=== PATIENT | female | born 1945 | race Caucasian/White ===

== ENCOUNTER 2020-08-27 22:29 | Inpatient (IN) | payer OTHER ==
[~2020-08-27] VITALS: Ht 152.4 cm; Wt 88.5 kg
--- NOTE | 2020-08-27 22:58 | NUR ---
PT PLACED ON 4L VIA NC, SATURATING 80S ON ROOM AIR AND DROPPING. EMT AT BEDSIDE FOR EKG.
--- NOTE | 2020-08-27 23:13 | NUR ---
PATIENT CAME TO ER BED 18 C/O SOB. PATIENT STATES SHE TESTED POSITIVE 2 WEEKS AGO. PATIENT IS CZECH SPEAKING. AAOX4. BREATHING EVENLY AND UNLABORED ON 4L OF N/C. PATIENT IS CONNECTED TO THE MONITOR.
--- NOTE | 2020-08-27 23:33 | NUR ---
BLOOD, CULTURES, AND COVID SWAB COLLECTED AND SENT TO THE LAB.
[2020-08-27 23:34] LABS: BASOPHILS % (AUTO) 0.2 % (0.0-2.0); EOSINOPHILS % (AUTO) 1.5 % (0.0-6.0); HEMATOCRIT 34 % (33-45); HEMOGLOBIN 11.4 g/dL (11.5-14.8); LYMPHOCYTES # (AUTO) 0.8 /CMM (0.8-4.8); LYMPHOCYTES % (AUTO) 10.8 % (20.0-44.0); MEAN CORPUSCULAR HGB CONC 34 g/dl (31.0-36.0); MEAN CORPUSCULAR VOLUME 93 fL (82-100); MONOCYTES # (AUTO) 0.5 /CMM (0.1-1.30); MONOCYTES % (AUTO) 6.6 % (2.0-12.0); NEUTROPHILS # (AUTO) 6.3 /CMM (1.8-8.9); NEUTROPHILS % (AUTO) 80.9 % (43.0-81.0); PLATELET COUNT (AUTO) 336 /CMM (150-450); RED BLOOD CELL COUNT(AUTO) 3.65 MIL/uL (4.0-5.2); WHITE BLOOD COUNT (AUTO) 7.8 K/uL (4.3-11.0)
[2020-08-27 23:44] LABS: CALCIUM, SERUM 8.8 mg/dL (8.5-10.1); CARBON DIOXIDE 25 mmol/L (21-32); CHLORIDE 98 mmol/L (98-107); CREATININE 0.9 mg/dL (0.6-1.3); GLUCOSE 135 mg/dL (74-106); POTASSIUM 4.3 mmol/L (3.5-5.1); SODIUM SERUM 134 mmol/L (136-145); UREA NITROGEN, BLOOD 16 mg/dL (7-18)
[2020-08-27 23:57] LABS: ALANINE AMINOTRANSFERASE 30 U/L (12-78); ALBUMIN 2.6 g/dL (3.4-5.0); ALKALINE PHOSPHATASE 97 U/L (46-116); ASPARTATE AMINOTRANSFERASE 36 U/L (15-37); B-TYPE NATRIURETIC PEPTIDE 64 PG/ML (0-125); BILIRUBIN,TOTAL 0.3 mg/dL (0.2-1.0); TOTAL PROTEIN, SERUM 8.3 g/dL (6.4-8.2)
--- NOTE | 2020-08-28 01:41 | NUR ---
PATIENT IS SLEEPING. BREATHING EVENLY AND UNLABORED ON ROOM AIR. CONNECTED TO THE MONITOR. BED AT THE LOWEST POSITION. CALL LIGHT WITHIN REACH.
[2020-08-28 01:45] LABS: C-REACTIVE PROTEIN 29.2 mg/dL (0.0-0.9)
[2020-08-28] MEDS ORDERED: VANCOMYCIN 1 GM in IV D5W 250 ML IV ONE (02:00)
[2020-08-28] MEDS ORDERED: PIPERACILLIN /TAZOBACTAM 3.375 G in IV D5W 50 ML IV ONE (02:00)
[2020-08-28] MEDS ORDERED: VANCOMYCIN 1 GM VIAL ONE (02:07)
--- NOTE | 2020-08-28 02:24 | NUR ---
CALLED AFTER HOUR PHARMACY TO VERIFY THE ADMITTING ORDERS
[2020-08-28] MEDS ORDERED: PIPERACILLIN /TAZOBACTAM 3.375 G VIAL IV ONE (02:32)
--- NOTE | 2020-08-28 03:25 | NUR ---
patient ambulated to the restroom with a steady gait.
--- NOTE | 2020-08-28 05:04 | NUR ---
PATIENT AMBULATED TO THE RESTROOM WITH A STEADY GAIT.
--- NOTE | 2020-08-28 07:24 | NUR ---
Patient ambulated to the restroom with a steady gait.
[2020-08-28] MEDS ORDERED: MAG HYDROX/AL HYDROX/SIMETH 30 ML UDC PO PRN (09:30)
[2020-08-28] MEDS ORDERED: MORPHINE SULFATE INJ 2 MG/ML DISP.SYRIN IV PRN (09:30)
[2020-08-28] MEDS ORDERED: ZOLPIDEM TARTRATE 5 MG TABLET PO PRN (09:30)
[2020-08-28] MEDS ORDERED: ACETAMINOPHEN 325 MG TABLET PO PRN (09:30)
[2020-08-28] MEDS ORDERED: HYDROCODONE/APAP 5/325MG TABLET PO PRN (09:30)
[2020-08-28] MEDS ORDERED: ONDANSETRON HCL/PF 4 MG/2 ML VIAL IVP PRN (09:30)
[2020-08-28] MEDS ORDERED: MAGNESIUM HYDROXIDE 30 ML UDC PO PRN (09:30)
[2020-08-28] MEDS: CEFTRIAXONE 1 G in IV D5W 50 ML IV SCH (10:10)
[2020-08-28] MEDS: ENOXAPARIN SODIUM 40 MG/0.4 ML DISP.SYRIN SQ SCH (10:31)
--- NOTE | 2020-08-28 10:33 | NUR ---
PATIENT AMBULATED TO RESTROOM, DESATURATED TO 80S WITH NASAL CANNULA. APPLIED 15LPM VIA NRB WITH SPO2 OF 97%.
[2020-08-28] MEDS: AZITHROMYCIN 500 MG in IV D5W 250 ML IV SCH (10:45)
[2020-08-28] MEDS ORDERED: ALBUTEROL SULFATE INH 18 GM HFA.AER.AD IH PRN (12:00)
--- NOTE | 2020-08-28 12:23 | NUR ---
CALLED RT FOR PRN BREATHING TREATMENT.
--- NOTE | 2020-08-28 13:25 | NUR ---
PATIENT RESTING, NO DISTRESS NOTED.
[2020-08-28] MEDS: DEXAMETHASONE SOD PHOSPHATE 10 MG/ML VIAL IV SCH (14:52)
--- NOTE | 2020-08-28 15:00 | NUR ---
ROBERT MADE AWARE PATIENT IS ON 15LPM VIA NRB. WITH O2 SAT OF 96%.
--- NOTE | 2020-08-28 16:00 | NUR ---
PATIENT A/OX4, PLACED ON SIMPLE MASK AT 8LPM WITH SPO2 OF 94%. NO DISTRESS NOTED.
--- NOTE | 2020-08-28 18:24 | NUR ---
BED 113-2
--- NOTE | 2020-08-28 18:27 | NUR ---
PER ROBERT, PATIENT TO BE UPGRADED TO EYRN STATUS.
--- NOTE | 2020-08-28 19:07 | NUR ---
REPORT GIVEN TO LIBBY BARTON FOR ALVINO.
--- NOTE | 2020-08-28 21:30 | NUR ---
LEAN FACILITATOR NOTES ADMITTED PATIENT FROM ER WITH DX OF PNA COVID BY DR LEÓN. PATIENT ALERT ORIENTED X 4. ON NON REBREATHER 15L O2 SAT AT 97 %, NON LABORED BREATHING. PRODUCTIVE COUGH NOTED. PUT ON TELE MONITOR, SHOWS SINUS RHYTHYM HR 83. DENIES ANY PAIN. BODY CHECKED DONE, SKIN INTACT. WITH RIGHT AC IV G18 PATENT AND INTACT, FLUSHED NO SIGNS OF INFILTRATION. BP 131/72 R 25 P 83 T 99.1 .ISOLATION PRECAUTION IMPLEMENTED. ALL SAFETY MEASURES IMPLEMENTED PER PROTOCOL, BED LOCKED IN LOWEST POSITION. SIDE RAILS UP X 2. CALL LIGHT WITHIN REACH. KEPT CLEAN AND COMFORTABLE.
[2020-08-28] MEDS: IV NS 0.9% 1,000 ML IV PRN (21:36)
--- NOTE | 2020-08-28 22:35 | NUR ---
ERYN RN NOTE DAY CARE ATTENDANT ESTRELLA CALLED INFORMED ME THAT PT COVID PCR RESULT IS POSITIVE.
[2020-08-29] VITALS: BP 123/69
[2020-08-29 04:00] VITALS: BP 117/73
[2020-08-29 06:54] LABS: BASOPHILS % (AUTO) 0.1 % (0.0-2.0); HEMATOCRIT 32 % (33-45); HEMOGLOBIN 10.9 g/dL (11.5-14.8); LYMPHOCYTES % (AUTO) 11.8 % (20.0-44.0); MEAN CORPUSCULAR HGB CONC 34 g/dl (31.0-36.0); MEAN CORPUSCULAR VOLUME 93 fL (82-100); MONOCYTES # (AUTO) 0.3 /CMM (0.1-1.30); NEUTROPHILS # (AUTO) 6.8 /CMM (1.8-8.9); NEUTROPHILS % (AUTO) 84.1 % (43.0-81.0); PLATELET COUNT (AUTO) 385 /CMM (150-450); RED BLOOD CELL COUNT(AUTO) 3.46 MIL/uL (4.0-5.2); WHITE BLOOD COUNT (AUTO) 8.1 K/uL (4.3-11.0)
[2020-08-29 07:12] LABS: ALBUMIN 2.3 g/dL (3.4-5.0); BILIRUBIN,TOTAL 0.3 mg/dL (0.2-1.0); CALCIUM, SERUM 8.8 mg/dL (8.5-10.1); CREATININE 0.7 mg/dL (0.6-1.3); MAGNESIUM 2.6 mg/dL (1.8-2.4); PHOSPHORUS 4.8 mg/dL (2.5-4.9); POTASSIUM 4.5 mmol/L (3.5-5.1); TOTAL PROTEIN, SERUM 8.1 g/dL (6.4-8.2)
--- NOTE | 2020-08-29 07:26 | NUR ---
WATCH PARTS GRINDER CLOSING NOTES PATIENT REMAINS IN BED. CONTINUE ON NON REBREATHER AT 15 L. SATING AT 93 % DENIES SOB. TELE MONITOR SHOWS NSR HR 80S. IVF NS RUNNING AT 75 ML/HR NO SIGNS OF INFILTRATION. . ISOLATION PRECAUTION OBSERVED FOR COVID. ALL SAFETY MEASURES IMPLEMENTED PER PROTOCOL, BED LOCKED IN LOWEST POSITION. SIDE RAILS UP X 2. CALL LIGHT WITHIN REACH. WILL ENDORSE TO NEXT SHIFT NURSE FOR ALVINO.
--- NOTE | 2020-08-29 07:53 | NUR ---
RN OPENING NOTES PATIENT IS IN BED. GO TO THE CHAIR SOMETIMES CONTINUE ON NON REBREATHER AT 15 L. SATING AT 94 % DENIES SOB. TELE MONITOR SHOWS NSR HR 80S. IVF NS RUNNING AT 75 ML/HR NO SIGNS OF INFILTRATION. . ISOLATION PRECAUTION OBSERVED FOR COVID. ALL SAFETY MEASURES IMPLEMENTED PER PROTOCOL, BED LOCKED IN LOWEST POSITION. SIDE RAILS UP X 2. CALL LIGHT WITHIN REACH. WILL CONTINUE TO MONITOR
[2020-08-29 08:00] VITALS: BP 117/71
[2020-08-29] MEDS: DEXAMETHASONE SOD PHOSPHATE 10 MG/ML VIAL IV SCH (09:09)
[2020-08-29] MEDS: ENOXAPARIN SODIUM 40 MG/0.4 ML DISP.SYRIN SQ SCH (09:10)
[2020-08-29] MEDS: AZITHROMYCIN 500 MG in IV D5W 250 ML IV SCH (10:48)
[2020-08-29] MEDS: CEFTRIAXONE 1 G in IV D5W 50 ML IV SCH (10:48)
[2020-08-29 12:00] VITALS: BP 92/41
--- NOTE | 2020-08-29 14:00 | NUR ---
RN NOTES NO SOB OR RESPIRATORY DISTRESS NOTED
--- NOTE | 2020-08-29 15:00 | NUR ---
RN NOTES PT IS SITTING IN THE CHAIR
[2020-08-29 16:00] VITALS: BP 123/71
[2020-08-29] MEDS ORDERED: REMDESIVIR (CHARGED) 200 MG, *LOADING DOSE 1 EA in IV NS 0.9% 210 ML IV ONE (18:00)
--- NOTE | 2020-08-29 19:14 | NUR ---
RN NOTES PHARM JUST BROUGHT [place]
--- NOTE | 2020-08-29 19:25 | NUR ---
RN NOTES NO ACUTE CHANGES. ALL NEEDS ARE MET. SAFETY MEAUSREMENTS ARE IN PLACE. CALL LIGHT WITHIN THE REACH. WILL ENDORSE TO PM NURSE
[2020-08-29 20:00] VITALS: BP 128/62
[2020-08-30] VITALS (9 sets, daily range): BP systolic 121–135; BP diastolic 54–79
[2020-08-30] MEDS: IV NS 0.9% 1,000 ML IV PRN (01:31)
[2020-08-30 06:38] LABS: BASOPHILS % (AUTO) 0.2 % (0.0-2.0); EOSINOPHILS % (AUTO) 0.1 % (0.0-6.0); HEMATOCRIT 33 % (33-45); HEMOGLOBIN 10.7 g/dL (11.5-14.8); LYMPHOCYTES # (AUTO) 1.2 /CMM (0.8-4.8); LYMPHOCYTES % (AUTO) 9.6 % (20.0-44.0); MEAN CORPUSCULAR HGB CONC 33 g/dl (31.0-36.0); MEAN CORPUSCULAR VOLUME 93 fL (82-100); MONOCYTES # (AUTO) 0.6 /CMM (0.1-1.30); MONOCYTES % (AUTO) 4.6 % (2.0-12.0); NEUTROPHILS # (AUTO) 10.8 /CMM (1.8-8.9); NEUTROPHILS % (AUTO) 85.5 % (43.0-81.0); PLATELET COUNT (AUTO) 400 /CMM (150-450); RED BLOOD CELL COUNT(AUTO) 3.53 MIL/uL (4.0-5.2); WHITE BLOOD COUNT (AUTO) 12.6 K/uL (4.3-11.0)
--- NOTE | 2020-08-30 07:06 | NUR ---
DRY WALL INSTALLER OPENING NOTES RECEIVED PT AWAKE IN BED AT THIS TIME. PT AOX2-3. PT ABLE TO VERBALIZE NEEDS. NO SOB NOTED, NO S/S OF ANY ACUTE DISTRESS NOTED. NO C/O PAIN AT THIS TIME. RESPIRATIONS ARE EVEN AND UNLABORED. PT NOTED ON 15LPM NON REBREATHER. KIRSTIN MIDLINE NOTED, INTACT, PATENT AND FLUSHING WELL. SAFETY PRECAUTION IN PLACE AND MAINTAINED AT ALL TIMES. BED IN LOWEST LOCKED POSITION, HOB ELEVATED, SIDE RAILS UP X 2, CALL LIGHT AND TABLE WITHIN REACH. WILL CONTINUE TO MONITOR
[2020-08-30 07:31] LABS: CALCIUM, SERUM 8.8 mg/dL (8.5-10.1); CREATININE 0.6 mg/dL (0.6-1.3); POTASSIUM 4.5 mmol/L (3.5-5.1)
--- NOTE | 2020-08-30 07:48 | NUR ---
PT STAYED STABLE, NO ACUTE CHANGES REPORT GIVEN TO INCOMING SHIFT FOR ALVINO.
--- NOTE | 2020-08-30 09:00 | NUR ---
PT NOTED WITH TEMP 99.1. COOLING MEASURES IN PLACE, ICE PACK IN ARMPIT, COOL WASH CLOTH ON FOREHEAD, PT UNCOVERED. WILL CONTINUE TO MONITOR Addendum: 08/30/20 at 1613 by YUE ESTRADA RN THIS DOCUMENTATION NOT MEANT FOR THIS PT
[2020-08-30 09:13] LABS: ALBUMIN 2.2 g/dL (3.4-5.0); BILIRUBIN,DIRECT 0.1 mg/dL (0.0-0.2); BILIRUBIN,TOTAL 0.2 mg/dL (0.2-1.0); TOTAL PROTEIN, SERUM 7.8 g/dL (6.4-8.2)
[2020-08-30] MEDS: DEXAMETHASONE SOD PHOSPHATE 10 MG/ML VIAL IV SCH (09:40)
[2020-08-30] MEDS: ENOXAPARIN SODIUM 40 MG/0.4 ML DISP.SYRIN SQ SCH (09:41)
[2020-08-30] MEDS: CEFTRIAXONE 1 G in IV D5W 50 ML IV SCH (09:41)
[2020-08-30] MEDS: AZITHROMYCIN 500 MG in IV D5W 250 ML IV SCH (10:21)
--- NOTE | 2020-08-30 16:10 | NUR ---
PT NOTED WITH TEMP 101. COOLING MEASURES IN PLACE, ICE PACK IN ARMPIT, COOL WASH CLOTH ON FOREHEAD, PT UNCOVERED. TYLENOL 650MG PO Q6HR, PRN FOR FEVER ADMINISTERED PER ORDER AT THIS TIME. WILL CONTINUE TO MONITOR Addendum: 08/30/20 at 1617 by YUE ESTRADA RN DOCUMENTATION NOT MEAN FOR THIS PT
[2020-08-30] MEDS: REMDESIVIR (CHARGED) 100 MG in IV NS 0.9% 230 ML IV SCH (18:21)
--- NOTE | 2020-08-30 19:00 | NUR ---
INSIDE SALES MANAGER CLOSING NOTES PT RESTING IN BED AT THIS TIME. PT REMAINED STABLE THROUGHOUT SHIFT. ALL CARE, NEED, MEDICATIONS AND TREATMENT ADMINISTERED ANTICIPATED PER ORDER. PT KEPT CLEAN AND DRY. SAFETY PRECAUTION IN PLACE AND MAINTAINED AT ALL TIMES. BED IN LOWEST LOCKED POSITION, HOB ELEVATED, SIDE RAILS UP X 2, CALL LIGHT AND TABLE WITHIN REACH. WILL ENDORSE TO FERRYBOAT OPERATOR NURSE FOR ALVINO
--- NOTE | 2020-08-30 22:26 | NUR ---
ERYN/RN CONVALESCENT PLASMA STARTED. WILL MONITOR PER PROTOCOL.
[2020-08-31] VITALS (11 sets, daily range): BP systolic 107–144; BP diastolic 52–82
--- NOTE | 2020-08-31 00:27 | NUR ---
ERYN/RN PATIENT IS SLEEPING AT THIS TIME APPEAR COMFORTABLE, NO SIGNS OF DISTRESS NOTED, CALL LIGHT IN REACH. CONVALESCENT PLASMA TRANSFUSION IS FINISHED, VITAL SIGNS STABLE AFEBRILE, WILL CONTINUE TO MONITOR.
[2020-08-31] MEDS: IV NS 0.9% 1,000 ML IV PRN ×2 (05:45→23:01)
--- NOTE | 2020-08-31 06:47 | NUR ---
ERYN/RN PATIENT IS AWAKE, A LITTLE ANXIOUS, COMFORTABLE, NO DISTRESS NOTED, STILL ON NO REBREATHER MASK, 15LPM O2, ALL NEEDS ATTENDED AT THIS TIME, WILL CONTINUE TO MONITOR.
--- NOTE | 2020-08-31 07:48 | NUR ---
DESIZING MACHINE OPERATOR HEAD END OPENING NOTES PATIENT AWAKE, A/O X1, ANXIOUS. ON OXYGEN; NON-REBREATHER AT 15 LPM; NO DISTRESS AT THIS TIME. NO S/S OF PAIN SUCH FACIAL GRIMACING, MOANING OR GUARDING NOTED. KIRSTIN MIDLINE PRESENT AND INTACT. SAFETY PRECAUTIONS IN PLACE; BED IN LOW POSITION AND LOCKED, HOB ELEVATED, RAILS UP X2, CALL LIGHT WITHIN REACH. WILL CONTINUE TO MONITOR PATIENT.
[2020-08-31 07:55] LABS: BASOPHILS % (AUTO) 0.1 % (0.0-2.0); EOSINOPHILS % (AUTO) 0.2 % (0.0-6.0); HEMATOCRIT 32 % (33-45); HEMOGLOBIN 10.5 g/dL (11.5-14.8); LYMPHOCYTES # (AUTO) 1.3 /CMM (0.8-4.8); LYMPHOCYTES % (AUTO) 16.2 % (20.0-44.0); MEAN CORPUSCULAR HGB CONC 33 g/dl (31.0-36.0); MEAN CORPUSCULAR VOLUME 94 fL (82-100); MONOCYTES # (AUTO) 0.5 /CMM (0.1-1.30); NEUTROPHILS # (AUTO) 6.1 /CMM (1.8-8.9); NEUTROPHILS % (AUTO) 77.5 % (43.0-81.0); PLATELET COUNT (AUTO) 383 /CMM (150-450); RED BLOOD CELL COUNT(AUTO) 3.42 MIL/uL (4.0-5.2); WHITE BLOOD COUNT (AUTO) 7.9 K/uL (4.3-11.0)
[2020-08-31] MEDS: DEXAMETHASONE SOD PHOSPHATE 10 MG/ML VIAL IV SCH (08:13)
[2020-08-31 08:33] LABS: ALANINE AMINOTRANSFERASE 30 U/L (12-78); ALBUMIN 2.2 g/dL (3.4-5.0); ALKALINE PHOSPHATASE 86 U/L (46-116); ASPARTATE AMINOTRANSFERASE 21 U/L (15-37); BILIRUBIN,DIRECT 0.1 mg/dL (0.0-0.2); BILIRUBIN,TOTAL 0.2 mg/dL (0.2-1.0); CALCIUM, SERUM 8.4 mg/dL (8.5-10.1); CARBON DIOXIDE 28 mmol/L (21-32); CHLORIDE 106 mmol/L (98-107); CREATININE 0.5 mg/dL (0.6-1.3); GLUCOSE 89 mg/dL (74-106); SODIUM SERUM 142 mmol/L (136-145); TOTAL PROTEIN, SERUM 7.4 g/dL (6.4-8.2); UREA NITROGEN, BLOOD 20 mg/dL (7-18)
[2020-08-31] MEDS: REMDESIVIR (CHARGED) 100 MG in IV NS 0.9% 230 ML IV SCH (17:30)
--- NOTE | 2020-08-31 18:49 | NUR ---
GEOPHYSICAL LABORATORY DIRECTOR CLOSING NOTES PATIENT AWAKE, A/O X2, AND WATCHING TV. ON OXYGEN; NON-REBREATHER AT 15 LPM; NO DISTRESS AT THIS TIME. NO COMPLAINS OF PAIN DURING SHIFT. KIRSTIN MIDLINE PRESENT AND INTACT. ALL NEEDS ATTENDED THROUGHOUT THE SHIFT. SAFETY PRECAUTIONS IN PLACE; BED IN LOW POSITION AND LOCKED, HOB ELEVATED, RAILS UP X2, CALL LIGHT WITHIN REACH. WILL ENDORSE TO PRINT TRAFFIC MANAGER NURSE.
--- NOTE | 2020-08-31 20:20 | NUR ---
ERYN/RN DURING INITIAL ASSESSMENT, PATIENT WAS LYING IN BED AWAKE, ALERT, ORIENTED, COMFORTABLE, NO C/O PAIN, NO DISTRESS NOTED, ON NON REBREATHER MASK WITH 15LPM O2, CALL LIGHT IN REACH, FALL PRECAUTIONS PER PROTOCOL, WILL MONITOR.
[2020-09-01] VITALS: BP 122/71
[2020-09-01] MEDS: APIXABAN 5 MG TABLET PO SCH ×3 (00:01→17:07)
[2020-09-01 04:00] VITALS: BP 125/56
[2020-09-01 06:19] LABS: BASOPHILS % (AUTO) 0.2 % (0.0-2.0); EOSINOPHILS % (AUTO) 0.5 % (0.0-6.0); HEMATOCRIT 33 % (33-45); HEMOGLOBIN 10.9 g/dL (11.5-14.8); LYMPHOCYTES # (AUTO) 1.8 /CMM (0.8-4.8); LYMPHOCYTES % (AUTO) 23.2 % (20.0-44.0); MEAN CORPUSCULAR HGB CONC 33 g/dl (31.0-36.0); MEAN CORPUSCULAR VOLUME 94 fL (82-100); MONOCYTES # (AUTO) 0.5 /CMM (0.1-1.30); MONOCYTES % (AUTO) 6.6 % (2.0-12.0); NEUTROPHILS # (AUTO) 5.3 /CMM (1.8-8.9); NEUTROPHILS % (AUTO) 69.5 % (43.0-81.0); PLATELET COUNT (AUTO) 345 /CMM (150-450); RED BLOOD CELL COUNT(AUTO) 3.49 MIL/uL (4.0-5.2); WHITE BLOOD COUNT (AUTO) 7.7 K/uL (4.3-11.0)
--- NOTE | 2020-09-01 06:25 | NUR ---
ERYN/RN PATIENT IS STILL SLEEPING AT THIS TIME, APPEAR COMFORTABLE, NO SIGNS OF DISTRESS NOTE, CALL LIGHT IN REACH, ALL NEEDS ATTENDED AT THIS TIME, WILL CONTINUE TO MONITOR.
[2020-09-01 07:18] LABS: ALANINE AMINOTRANSFERASE 25 U/L (12-78); ALBUMIN 2.1 g/dL (3.4-5.0); ALKALINE PHOSPHATASE 83 U/L (46-116); ASPARTATE AMINOTRANSFERASE 14 U/L (15-37); BILIRUBIN,DIRECT 0.1 mg/dL (0.0-0.2); BILIRUBIN,TOTAL 0.2 mg/dL (0.2-1.0); CALCIUM, SERUM 8.2 mg/dL (8.5-10.1); CARBON DIOXIDE 27 mmol/L (21-32); CHLORIDE 106 mmol/L (98-107); CREATININE 0.4 mg/dL (0.6-1.3); GLUCOSE 83 mg/dL (74-106); SODIUM SERUM 140 mmol/L (136-145); TOTAL PROTEIN, SERUM 7.1 g/dL (6.4-8.2); UREA NITROGEN, BLOOD 19 mg/dL (7-18)
[2020-09-01 07:38] LABS: C-REACTIVE PROTEIN 5.6 mg/dL (0.0-0.9)
--- NOTE | 2020-09-01 07:38 | NUR ---
ACCIDENT REPORT CLERK OPENING NOTES PATIENT AWAKE, A/O X2, LOOKS COMFORTABLE. ON OXYGEN; NON-REBREATHER AT 15 LPM; NO DISTRESS AT THIS TIME. NO COMPLAINS OF PAIN. KIRSTIN MIDLINE PRESENT AND INTACT. SAFETY PRECAUTIONS IN PLACE; BED IN LOW POSITION AND LOCKED, HOB ELEVATED, RAILS UP X2, CALL LIGHT WITHIN REACH. WILL CONTINUE TO MONITOR PATIENT.
[2020-09-01 08:00] VITALS: BP 126/64
[2020-09-01] MEDS: DEXAMETHASONE SOD PHOSPHATE 10 MG/ML VIAL IV SCH (08:59)
[2020-09-01 12:20] VITALS: BP 121/72
[2020-09-01] MEDS: IV NS 0.9% 1,000 ML IV PRN (13:11)
[2020-09-01 16:06] VITALS: BP 114/52
[2020-09-01] MEDS: REMDESIVIR (CHARGED) 100 MG in IV NS 0.9% 230 ML IV SCH (17:06)
--- NOTE | 2020-09-01 18:48 | NUR ---
HAM CURER CLOSING NOTES PATIENT AWAKE, A/O X2, LOOKS COMFORTABLE. ON OXYGEN; NON-REBREATHER AT 15 LPM; NO DISTRESS DURING SHIFT. NO COMPLAINS OF PAIN. KIRSTIN MIDLINE PRESENT AND INTACT; NS WAS DISCONTINUED BY MD. ALL NEEDS ATTENDED THROUGHOUT THE DAY. SAFETY PRECAUTIONS IN PLACE; BED IN LOW POSITION AND LOCKED, HOB ELEVATED, RAILS UP X2, CALL LIGHT WITHIN REACH. WILL ENDORSE TO 1ST PRESSMAN ON WEB PRESS NURSE.
--- NOTE | 2020-09-01 19:15 | NUR ---
PRE WAVE ASSEMBLER OPENING NOTES RECEIVED PT AWAKE IN BED AT THIS TIME. PT AOX2-3. PT ABLE TO VERBALIZE NEEDS. NO SOB NOTED, NO S/S OF ANY ACUTE DISTRESS NOTED. NO C/O PAIN AT THIS TIME. RESPIRATIONS ARE EVEN AND UNLABORED. PT NOTED ON 15LPM NON REBREATHER. KIRSTIN MIDLINE NOTED, INTACT, PATENT AND FLUSHING WELL. SAFETY PRECAUTION IN PLACE AND MAINTAINED AT ALL TIMES.DROPLET ISOLATION MAINTAINED FOR COVID 19, BED IN LOWEST LOCKED POSITION, HOB ELEVATED, SIDE RAILS UP X 2, CALL LIGHT AND TABLE WITHIN REACH. WILL CONTINUE TO MONITOR
[2020-09-01 20:00] VITALS: BP 114/52
[2020-09-02] VITALS: BP 134/72
[2020-09-02 04:00] VITALS: BP 136/77
--- NOTE | 2020-09-02 07:30 | NUR ---
ASSISTANT MERCHANDISE MANAGER OPENING NOTES PATIENT AWAKE, A/O X3, GEORGIAN SPEAKING, ON NON-REBREATHER AT 15 LPM OF O2; NO DISTRESS AT THIS TIME. RESPIRATION UNLABORED. NO COMPLAINS OF PAIN. KIRSTIN MIDLINE IN PLACE, FLUSHES WELL, SITE CLEAR. USES BED BRUNER, NO SKIN ISSUES. DISCUSSED POC, VERBALIZED UNDERSTANDING. SAFETY PRECAUTIONS IN PLACE; BED IN LOW POSITION AND LOCKED, HOB ELEVATED, RAILS UP X2, CALL LIGHT WITHIN REACH. WILL CONTINUE TO MONITOR PATIENT.
[2020-09-02 07:59] LABS: BASOPHILS % (AUTO) 0.1 % (0.0-2.0); EOSINOPHILS % (AUTO) 1.2 % (0.0-6.0); HEMATOCRIT 33 % (33-45); LYMPHOCYTES # (AUTO) 1.8 /CMM (0.8-4.8); LYMPHOCYTES % (AUTO) 26.4 % (20.0-44.0); MEAN CORPUSCULAR HGB CONC 33 g/dl (31.0-36.0); MEAN CORPUSCULAR VOLUME 93 fL (82-100); MONOCYTES # (AUTO) 0.5 /CMM (0.1-1.30); NEUTROPHILS # (AUTO) 4.4 /CMM (1.8-8.9); NEUTROPHILS % (AUTO) 65.3 % (43.0-81.0); PLATELET COUNT (AUTO) 357 /CMM (150-450); RED BLOOD CELL COUNT(AUTO) 3.57 MIL/uL (4.0-5.2); WHITE BLOOD COUNT (AUTO) 6.8 K/uL (4.3-11.0)
[2020-09-02 08:00] VITALS: BP 140/78
--- NOTE | 2020-09-02 08:00 | NUR ---
PT ON BED AWAKE A/O X 3 STILL ON O2 15L VIA NRM, NO DISTRESS NOTED, NO COMPLAINT, NO SIGNIFICANT CHANGES ON CONDITION NOTED ALL NEEDS ATTENDED DROPLET ISOLATION MAINTAIN FOR COVID 19, BED ON LOWEST POSITION AND LOCKED SIDE RAILS UP X2 CALL LIGHT WITHIN REACH WILL ENDORSED TO AM SHIFT NURSE
[2020-09-02 08:11] LABS: ALANINE AMINOTRANSFERASE 30 U/L (12-78); ALBUMIN 2.1 g/dL (3.4-5.0); ALKALINE PHOSPHATASE 81 U/L (46-116); ASPARTATE AMINOTRANSFERASE 20 U/L (15-37); BILIRUBIN,DIRECT 0.1 mg/dL (0.0-0.2); BILIRUBIN,TOTAL 0.3 mg/dL (0.2-1.0); CALCIUM, SERUM 8.2 mg/dL (8.5-10.1); CARBON DIOXIDE 34 mmol/L (21-32); CHLORIDE 104 mmol/L (98-107); CREATININE 0.5 mg/dL (0.6-1.3); GLUCOSE 83 mg/dL (74-106); POTASSIUM 4.1 mmol/L (3.5-5.1); SODIUM SERUM 140 mmol/L (136-145); UREA NITROGEN, BLOOD 16 mg/dL (7-18)
[2020-09-02 08:28] LABS: FERRITIN 324 ng/mL (8-388)
--- NOTE | 2020-09-02 09:30 | NUR ---
RN NOTES DUE MEDS GIVEN
[2020-09-02] MEDS: DEXAMETHASONE SOD PHOSPHATE 10 MG/ML VIAL IV SCH (10:21)
[2020-09-02] MEDS: APIXABAN 5 MG TABLET PO SCH ×2 (10:21→17:31)
--- NOTE | 2020-09-02 10:30 | NUR ---
RN NOTES BROOKE FLORES DIRECTOR OF EPIDEMIOLOGY AT BEDSIDE EARLIER. NO NEW ORDERS
[2020-09-02 12:00] VITALS: BP 96/57
[2020-09-02 16:00] VITALS: BP 115/70
[2020-09-02] MEDS: REMDESIVIR (CHARGED) 100 MG in IV NS 0.9% 230 ML IV SCH (17:30)
--- NOTE | 2020-09-02 18:52 | NUR ---
EXTRUSION DIE COORDINATOR CLOSING NOTES PATIENT AWAKE, A/O X3, INDONESIAN SPEAKING, ON NON-REBREATHER AT 15 LPM OF O2; NO DISTRESS AT THIS TIME. RESPIRATION UNLABORED. NO COMPLAINS OF PAIN. KIRSTIN MIDLINE IN PLACE, FLUSHES WELL, SITE CLEAR. USES BED BRUNER, NO SKIN ISSUES. SAFETY PRECAUTIONS IN PLACE; BED IN LOW POSITION AND LOCKED, HOB ELEVATED, RAILS UP X2, CALL LIGHT WITHIN REACH. ALL NEEDS MET AT THIS TIME. NO SIGNIFICANT CHANGE IN CONDITION.WILL ENDORSE TO NEXT SHIFT FOR ALVINO.
[2020-09-02 20:00] VITALS: BP 129/78
--- NOTE | 2020-09-02 20:10 | NUR ---
RN NOTES PATIENT A/O X3, SURINAMESE SPEAKING. ON O2 15LPM VIA NON-REBREATHER, O2 SATURATION 97%. NO SOB AT THIS TIME. RESPIRATION EVEN AND UNLABORED. DENIES ANY PAIN. WITH RIGHT UPPER ARM MIDLINE, INTACT AND FLUSHED WITH NS. BED LOCKED AND IN LOWEST POSITION. SIDE RAILS UP X2. SAFETY MEASURES IMPLEMENTED. CALL LIGHT WITHIN REACH. WILL CONTINUE TO MONITOR.
[2020-09-03] VITALS: BP 119/79
[2020-09-03 04:00] VITALS: BP 126/67
[2020-09-03 06:38] LABS: BASOPHILS % (AUTO) 0.2 % (0.0-2.0); EOSINOPHILS % (AUTO) 0.7 % (0.0-6.0); HEMATOCRIT 33 % (33-45); HEMOGLOBIN 10.9 g/dL (11.5-14.8); LYMPHOCYTES # (AUTO) 1.6 /CMM (0.8-4.8); LYMPHOCYTES % (AUTO) 20.6 % (20.0-44.0); MEAN CORPUSCULAR HGB CONC 33 g/dl (31.0-36.0); MEAN CORPUSCULAR VOLUME 92 fL (82-100); MONOCYTES # (AUTO) 0.5 /CMM (0.1-1.30); MONOCYTES % (AUTO) 6.4 % (2.0-12.0); NEUTROPHILS # (AUTO) 5.7 /CMM (1.8-8.9); NEUTROPHILS % (AUTO) 72.1 % (43.0-81.0); PLATELET COUNT (AUTO) 366 /CMM (150-450); RED BLOOD CELL COUNT(AUTO) 3.54 MIL/uL (4.0-5.2); WHITE BLOOD COUNT (AUTO) 7.9 K/uL (4.3-11.0)
[2020-09-03 06:44] LABS: ALANINE AMINOTRANSFERASE 32 U/L (12-78); ALBUMIN 2.1 g/dL (3.4-5.0); ALKALINE PHOSPHATASE 82 U/L (46-116); ASPARTATE AMINOTRANSFERASE 18 U/L (15-37); BILIRUBIN,DIRECT 0.1 mg/dL (0.0-0.2); BILIRUBIN,TOTAL 0.3 mg/dL (0.2-1.0); CALCIUM, SERUM 8.4 mg/dL (8.5-10.1); CARBON DIOXIDE 34 mmol/L (21-32); CHLORIDE 103 mmol/L (98-107); CREATININE 0.5 mg/dL (0.6-1.3); GLUCOSE 93 mg/dL (74-106); POTASSIUM 4.3 mmol/L (3.5-5.1); SODIUM SERUM 140 mmol/L (136-145); TOTAL PROTEIN, SERUM 6.8 g/dL (6.4-8.2); UREA NITROGEN, BLOOD 17 mg/dL (7-18)
--- NOTE | 2020-09-03 07:02 | NUR ---
RN NOTES PATIENT A/O X3, BELIZEAN SPEAKING. ON O2 15LPM VIA NON-REBREATHER, O2 SATURATION 97%. NO SOB AT THIS TIME. RESPIRATION EVEN AND UNLABORED. DENIES ANY PAIN. WITH RIGHT UPPER ARM MIDLINE, INTACT AND FLUSHED WITH NS. NO SIGNIFICANT CHANGES DURING THIS SHIFT. BED LOCKED AND IN LOWEST POSITION. SIDE RAILS UP X2. SAFETY MEASURES IMPLEMENTED. CALL LIGHT WITHIN REACH. WILL ENDORSE TO ONCOMING SHIFT.
--- NOTE | 2020-09-03 07:30 | NUR ---
BANKING SERVICES ADVISOR OPENING NOTES PATIENT AWAKE, A/O X3, LATVIAN SPEAKING, ON NON-REBREATHER AT 15 LPM OF O2; NO DISTRESS AT THIS TIME. RESPIRATION UNLABORED. NO COMPLAINS OF PAIN. KIRSTIN MIDLINE IN PLACE, FLUSHES WELL, SITE CLEAR. USES BED BRUNER, NO SKIN ISSUES. DISCUSSED POC, VERBALIZED UNDERSTANDING. SAFETY PRECAUTIONS IN PLACE; BED IN LOW POSITION AND LOCKED, HOB ELEVATED, RAILS UP X2, CALL LIGHT WITHIN REACH. WILL CONTINUE TO MONITOR PATIENT.
[2020-09-03 08:00] VITALS: BP 123/79
--- NOTE | 2020-09-03 09:30 | NUR ---
RN NOTES DUE MEDS GIVEN
[2020-09-03] MEDS: APIXABAN 5 MG TABLET PO SCH ×2 (09:40→18:11)
[2020-09-03] MEDS: DEXAMETHASONE SOD PHOSPHATE 10 MG/ML VIAL IV SCH (09:40)
[2020-09-03 12:00] VITALS: BP 106/52
[2020-09-03 16:00] VITALS: BP 100/63
--- NOTE | 2020-09-03 19:11 | NUR ---
HOSPITALITY HOUSEKEEPER CLOSING NOTES PATIENT AWAKE, A/O X3, YAKUT SPEAKING, ON NON-REBREATHER AT 15 LPM OF O2; NO DISTRESS AT THIS TIME. RESPIRATION UNLABORED. NO COMPLAINS OF PAIN. KIRSTIN MIDLINE IN PLACE, FLUSHES WELL, SITE CLEAR. USES BED BRUNER, NO SKIN ISSUES. SAFETY PRECAUTIONS IN PLACE; BED IN LOW POSITION AND LOCKED, HOB ELEVATED, RAILS UP X2, CALL LIGHT WITHIN REACH. ALL NEEDS MET AT THIS TIME. NO SIGNIFICANT CHANGE IN CONDITION.WILL ENDORSE TO NEXT SHIFT FOR ALVINO.
--- NOTE | 2020-09-03 19:30 | NUR ---
GLOBAL SOURCING MANAGER OPENING NOTES RECEIVED PATIENT RESTING IN BED COMFORTABLY, A/OX3, LIBERIAN SPEAKING; ABLE TO MAKE NEEDS KNOWN; BREATHING EVENLY AND UNLABORED; PATIENT TOLERATING 15LPM VIA NON-REBREATHER MASK; TELE MONITOR READS SINUS RHYTHM; ISOLATION PRECAUTIONS MAINTAINED; KIRSTIN MIDLINE INTACT AND PATENT; SAFETY PRECAUTIONS IMPLEMENTED; WILL CONT PLAN OF CARE
[2020-09-03 20:00] VITALS: BP 109/57
[2020-09-04] VITALS: BP 117/52
--- NOTE | 2020-09-04 00:33 | NUR ---
PLASMA SPECIALIST NOTES PATIENT REQUESTING SLEEPING AID; SALES DESIGNER MD, DR. ANA GALLEGO MADE AWARE; AWAITING MD ORDERS; WILL CONT PLAN OF CARE
--- NOTE | 2020-09-04 00:39 | NUR ---
SHOT PEEN OPERATOR NOTES PER MD SHANAE DURAN TO GIVE AMBIEN 5MG PO HS PRN FOR SLEEP; ORDERS RECEIVED AND CARRIED OUT; AWAITING FOR ETIQUETTE COACH PHARMACY TO VERIFY MEDICATION; WILL ADMINISTER MED PER MD ORDER AND WILL CONT PLAN OF CARE
[2020-09-04] MEDS ORDERED: ZOLPIDEM TARTRATE 5 MG TABLET PO PRN (01:00)
[2020-09-04 04:00] VITALS: BP 106/72
[2020-09-04 06:01] LABS: CALCIUM, SERUM 8.6 mg/dL (8.5-10.1); CARBON DIOXIDE 33 mmol/L (21-32); CHLORIDE 103 mmol/L (98-107); CREATININE 0.5 mg/dL (0.6-1.3); GLUCOSE 97 mg/dL (74-106); POTASSIUM 4.3 mmol/L (3.5-5.1); SODIUM SERUM 141 mmol/L (136-145); UREA NITROGEN, BLOOD 20 mg/dL (7-18)
[2020-09-04 06:06] LABS: BASOPHILS % (AUTO) 0.4 % (0.0-2.0); EOSINOPHILS % (AUTO) 0.7 % (0.0-6.0); HEMATOCRIT 34 % (33-45); HEMOGLOBIN 11.1 g/dL (11.5-14.8); LYMPHOCYTES % (AUTO) 22.6 % (20.0-44.0); MEAN CORPUSCULAR HGB CONC 33 g/dl (31.0-36.0); MEAN CORPUSCULAR VOLUME 94 fL (82-100); MONOCYTES % (AUTO) 6.3 % (2.0-12.0); PLATELET COUNT (AUTO) 363 /CMM (150-450); WHITE BLOOD COUNT (AUTO) 8.1 K/uL (4.3-11.0)
[2020-09-04 06:07] LABS: LYMPHOCYTES # (AUTO) 1.8 /CMM (0.8-4.8); MONOCYTES # (AUTO) 0.5 /CMM (0.1-1.30); NEUTROPHILS # (AUTO) 5.7 /CMM (1.8-8.9)
--- NOTE | 2020-09-04 06:36 | NUR ---
HEAD CHARGER CLOSING NOTES PATIENT RESTING IN BED COMFORTABLY; A/OX3, KAZAKH SPEAKER; ABLE TO MAKE NEEDS KNOWN; BREATHING EVENLY AND UNLABORED; TOLERATING 15LPM VIA NON-REBREATHER MASK; NO SOB NOTED; NO ACUTE DISTRESS NOTED AT THIS TIME; TELE MONITOR READS SINUS RHYTHM 90S - 100S; ISOLATION PRECAUTIONS MAINTAINTED; R UA MIDLINE S/L, INTACT AND PATENT; FLUSHING WELL; ALL NEEDS RENDERED; SAFETY PRECAUTIONS IMPLEMENTED; WILL ENDORSE CONTINUITY OF CARE TO ONCOMING SHIFT
--- NOTE | 2020-09-04 07:40 | NUR ---
ms rn received patient on bed,awake,alert,oriented x3,not in distress, on non rebreather mask at 15 liters,saturating 96%, denies pain at this time,all needs attended.
[2020-09-04 08:00] VITALS: BP 132/61
--- NOTE | 2020-09-04 09:50 | NUR ---
ms west breakfast served,due meds given,tolerated well.
[2020-09-04] MEDS: DEXAMETHASONE SOD PHOSPHATE 10 MG/ML VIAL IV SCH (10:24)
[2020-09-04] MEDS: APIXABAN 5 MG TABLET PO SCH ×2 (10:25→17:26)
[2020-09-04 14:22] VITALS: BP 111/62
[2020-09-04 16:00] VITALS: BP 119/56
--- NOTE | 2020-09-04 18:34 | NUR ---
ms rn on bed, no distress noted, will endorse to mini shifter fo sienna.
--- NOTE | 2020-09-04 19:23 | NUR ---
STOCK PATCH SAWYER NOTES PATIENT IN BED, AWAKE, ALERT AND ORIENTED X 3. BREATHING EVEN AND UNLABORED ON NONREBREATHER 15L. SHOWS NO SIGNS OF ACUTE RESPIRATORY DISTRESS, NO ACUTE PAIN. TELE MONITOR SR. IV ON KIRSTIN MIDLINE SL. SHOWS NO SIGNS OF INFILTRATION, NO REDNESS. SAFETY PRECAUTIONS IN PLACE. BED IN LOWEST POSITION, LOCKED, AND CALL LIGHT KEPT WITHIN REACH. WILL CONTINUE TO MONITOR.
[2020-09-04 20:00] VITALS: BP 104/52
[2020-09-05] VITALS: BP 109/53
[2020-09-05 04:00] VITALS: BP 112/51
[2020-09-05 06:03] LABS: POTASSIUM 4.5 mmol/L (3.5-5.1)
[2020-09-05 06:04] LABS: CALCIUM, SERUM 8.8 mg/dL (8.5-10.1); CREATININE 0.6 mg/dL (0.6-1.3); MAGNESIUM 2.3 mg/dL (1.8-2.4); PHOSPHORUS 4.3 mg/dL (2.5-4.9)
[2020-09-05 06:10] LABS: BASOPHILS # (AUTO) 0.1 /CMM (0.0-0.2); BASOPHILS % (AUTO) 0.5 % (0.0-2.0); EOSINOPHILS % (AUTO) 0.4 % (0.0-6.0); HEMATOCRIT 36 % (33-45); HEMOGLOBIN 11.7 g/dL (11.5-14.8); LYMPHOCYTES # (AUTO) 2.5 /CMM (0.8-4.8); LYMPHOCYTES % (AUTO) 24.7 % (20.0-44.0); MEAN CORPUSCULAR HGB CONC 33 g/dl (31.0-36.0); MEAN CORPUSCULAR VOLUME 94 fL (82-100); MONOCYTES # (AUTO) 0.5 /CMM (0.1-1.30); MONOCYTES % (AUTO) 4.8 % (2.0-12.0); NEUTROPHILS # (AUTO) 7.1 /CMM (1.8-8.9); NEUTROPHILS % (AUTO) 69.6 % (43.0-81.0); PLATELET COUNT (AUTO) 390 /CMM (150-450); RED BLOOD CELL COUNT(AUTO) 3.79 MIL/uL (4.0-5.2); WHITE BLOOD COUNT (AUTO) 10.2 K/uL (4.3-11.0)
--- NOTE | 2020-09-05 06:47 | NUR ---
CREAM TESTER NOTES PATIENT IN BED, ASLEEP, ALERT AND ORIENTED X 3. BREATHING EVEN AND UNLABORED ON NONREBREATHER 15L. SHOWS NO SIGNS OF ACUTE RESPIRATORY DISTRESS, NO ACUTE PAIN. TELE MONITOR SR. IV ON KIRSTIN MIDLINE SL. SHOWS NO SIGNS OF INFILTRATION, NO REDNESS. ALL DUE MEDICATIONS.ISOLATION PRECAUTIONS IN PLACE SAFETY PRECAUTIONS IN PLACE. BED IN LOWEST POSITION, LOCKED, AND CALL LIGHT KEPT WITHIN REACH. WILL ENDORSE TO ONCOMING NURSE.
[2020-09-05 08:00] VITALS: BP 137/80
--- NOTE | 2020-09-05 08:00 | NUR ---
EDGE SANDER NOTES PATIENT IN BED, AWAKE, ALERT AND ORIENTED X 3. BREATHING EVEN AND UNLABORED ON NONREBREATHER 15L. O2 SAT 98% DENIES ACUTE RESPIRATORY DISTRESS, NO ACUTE PAIN. TELE MONITOR SR. IV ON KIRSTIN MIDLINE SL. SHOWS NO SIGNS OF INFILTRATION, NO REDNESS. SAFETY PRECAUTIONS IN PLACE. BED IN LOWEST POSITION, LOCKED, AND CALL LIGHT KEPT WITHIN REACH. WILL CONTINUE TO MONITOR.
[2020-09-05] MEDS: DEXAMETHASONE SOD PHOSPHATE 10 MG/ML VIAL IV SCH (09:35)
[2020-09-05] MEDS: APIXABAN 5 MG TABLET PO SCH ×2 (09:36→17:21)
[2020-09-05 12:00] VITALS: BP 120/70
--- NOTE | 2020-09-05 12:00 | NUR ---
TITRATED PT'S O2 NRB MASK OF 15 LITERS TO O2 AT 5L/MIN VIA NC WITH O2 SAT OF 92% TOLERATING WELL.PT EATING LUNCH AT THIS TIME.
--- NOTE | 2020-09-05 15:00 | NUR ---
RN NOTES RECEIVED REPORT FROM KADEEM BARTON FOR ALVINO
[2020-09-05 16:00] VITALS: BP 108/62
--- NOTE | 2020-09-05 19:45 | NUR ---
ACADEMIC ADVISING DIRECTOR NOTES RECEIVED ON BED,ON SEMI FOWLERS POSITION,A/O X4,SPEAK TAMAZIGHT,BREATHING NON LABORED,O2 IN USED AT 5L/NC,O2 SAT 96%.WITH KIRSTIN MIDLINE FOR MEDS.DROPLET ISOLATION FOR COVID 19 POSITIVE.CALL LIGHT IN REACH,NEEDS ANTICIPATED.
--- NOTE | 2020-09-05 19:51 | NUR ---
RN CLOSING NOTES PT IN BED. A/O X 3. ON 5L O2 VIA NC. NO SIGNS OF ACUTE RESPIRATORY DISTRESS. NO PAIN. TELE MONITOR SR. IV ON KIRSTIN MIDLINE SL. ISOLATION PRECAUTIONS IN PLACE. SAFETY PRECAUTIONS IN PLACE. BED IN LOWEST POSITION, LOCKED, AND CALL LIGHT KEPT WITHIN REACH. WILL ENDORSE TO ONCOMING NURSE.
[2020-09-05 20:00] VITALS: BP 112/66
[2020-09-06] VITALS: BP 112/66
--- NOTE | 2020-09-06 01:00 | NUR ---
ROAD CONSULTANT NOTES SLEEPING KEPT WARM AND COMFORTABLE
[2020-09-06 04:00] VITALS: BP 108/63
[2020-09-06 06:58] LABS: CALCIUM, SERUM 8.7 mg/dL (8.5-10.1); CARBON DIOXIDE 31 mmol/L (21-32); CHLORIDE 103 mmol/L (98-107); CREATININE 0.5 mg/dL (0.6-1.3); GLUCOSE 89 mg/dL (74-106); MAGNESIUM 2.4 mg/dL (1.8-2.4); PHOSPHORUS 3.9 mg/dL (2.5-4.9); POTASSIUM 4.3 mmol/L (3.5-5.1); SODIUM SERUM 140 mmol/L (136-145); UREA NITROGEN, BLOOD 22 mg/dL (7-18)
--- NOTE | 2020-09-06 06:59 | NUR ---
FOOD PREPARATION SUPERVISOR NOTES SLEPT WITH INTERVALS,AFEBRILE,NO SOB,O2 SAT 98%,THE LATEST.AWAITING TRANSFUSION OF CONVALESCENT PLASMA,PER BLOOD BANK,NO DELIVERY YET.
[2020-09-06 07:01] LABS: BASOPHILS % (AUTO) 0.1 % (0.0-2.0); EOSINOPHILS % (AUTO) 0.1 % (0.0-6.0); HEMATOCRIT 36 % (33-45); HEMOGLOBIN 11.7 g/dL (11.5-14.8); LYMPHOCYTES # (AUTO) 2.3 /CMM (0.8-4.8); LYMPHOCYTES % (AUTO) 25.8 % (20.0-44.0); MEAN CORPUSCULAR HGB CONC 33 g/dl (31.0-36.0); MEAN CORPUSCULAR VOLUME 94 fL (82-100); MONOCYTES # (AUTO) 0.4 /CMM (0.1-1.30); MONOCYTES % (AUTO) 4.9 % (2.0-12.0); NEUTROPHILS % (AUTO) 69.1 % (43.0-81.0); PLATELET COUNT (AUTO) 383 /CMM (150-450); RED BLOOD CELL COUNT(AUTO) 3.81 MIL/uL (4.0-5.2); WHITE BLOOD COUNT (AUTO) 8.7 K/uL (4.3-11.0)
--- NOTE | 2020-09-06 07:35 | NUR ---
ESCORT CAR DRIVER NOTES PATIENT RECEIVED IN BED, AWAKE, ALERT AND ORIENTED, IRISH SPEAKING. ON NASAL CANNULA, WITH NO SOB NOTED AT THIS TIME WITH EVEN NON-LABORED BREATHING AT THIS TIME. ON FOLDER MACHINE ADJUSTER, SINUS GIOVANNY 50'S. IV ACCESS INTACT AND PATENT. PATIENT PRESENTING WITH NO PAIN OR DISCOMFORT AT THIS TIME. SAFETY PRECAUTIONS IMPLEMENTED WITH BED LOCKED, BILATERAL SIDE RAILS UP, BED ALARM ON, BED IN THE LOWEST POSITION AND CALL LIGHT WITHIN EASY REACH. WILL CONTINUE TO MONITOR.
[2020-09-06 08:00] VITALS: BP 116/58
[2020-09-06] MEDS: DEXAMETHASONE SOD PHOSPHATE 10 MG/ML VIAL IV SCH (08:15)
[2020-09-06] MEDS: APIXABAN 5 MG TABLET PO SCH ×2 (08:15→16:31)
[2020-09-06 12:00] VITALS: BP 113/68
--- NOTE | 2020-09-06 12:30 | NUR ---
DOUGHNUT ICER MACHINE NOTES CALLED BLOOD BANK, AWAITING FOR CONV. PLASMA, STILL UNAVAILABLE AT THIS TIME WILL CALL AGAIN AND FOLLOW UP.
[2020-09-06 16:00] VITALS: BP 120/68
--- NOTE | 2020-09-06 16:15 | NUR ---
SIGNALING PROJECT ENGINEER NOTES CALLED BLOOD BANK FOR CONV. PLASMA, STILL UNAVAILABLE. WILL CONTINUE TO MONITOR PATIENT.
--- NOTE | 2020-09-06 18:42 | NUR ---
ICE SELLER NOTES PATIENT IN BED, AWAKE, ALERT AND ORIENTED, KYRGYZ SPEAKING. ON NASAL CANNULA, WITH NO SOB NOTED AT THIS TIME WITH EVEN NON-LABORED BREATHING AT THIS TIME. ON AIRPLANE PILOT. IV ACCESS INTACT AND PATENT. PATIENT SKIN KEPT CLEAN AND DRY TO TOUCH. MET ALL OF PATIENT'S NEEDS. PATIENT PRESENTING WITH NO PAIN OR DISCOMFORT AT THIS TIME. SAFETY PRECAUTIONS IMPLEMENTED WITH BED LOCKED, BILATERAL SIDE RAILS UP, BED ALARM ON, BED IN THE LOWEST POSITION AND CALL LIGHT WITHIN EASY REACH. WILL ENDORSE PLAN OF CARE TO UPCOMING RN.
--- NOTE | 2020-09-06 19:45 | NUR ---
CONSULTING INTERN NOTES ON BED AWAKE,ALERT,ORIENTED X4,WATCHING TV PROGRAM.SPEAK ROMANIAN,ISOLATION FOR COVID 19 POSITIVE.SALINE LOCK KIRSTIN INTACT AND PATENT.DENIES SOB THIS TIME,O2 IN USED AT 5L/NC,O2 SAT WNL.CALL LIGHT IN REACH,NEEDS ANTICIPATED.
[2020-09-06 20:00] VITALS: BP 98/59
--- NOTE | 2020-09-06 21:22 | NUR ---
STUDIO HAND NOTES SR-70 ON TELE MONITOR
[2020-09-07] VITALS: BP 92/53
[2020-09-07 04:00] VITALS: BP 104/52
--- NOTE | 2020-09-07 06:43 | NUR ---
EMPLOYMENT COACH NOTES NO SIGNIFICANT CHANGE IN STATUS.STILL WAITING FOR PLASMA TRANSFUSION,NO AVAILABLE YET.AMBULATE TO THE RESTROOM WITH STEADY GAIT.NO SOB NOTED.IN NO ACUTE DISTRESS.
--- NOTE | 2020-09-07 07:05 | NUR ---
ELECTRIC SEALING MACHINE OPERATOR OPENING NOTES RECEIVED PT AWAKE AND SITTING UP BY BEDSIDE AT THIS TIME. PT X4, PT ABLE VERBALIZE NEEDS. DANISH SPEAKING. NO SOB NOTED, NO S/S OF ANY ACUTE DISTRESS NOTED. NO C/O PAIN AT THIS TIME. RESPIRATIONS ARE EVEN AND UNLABORED. PT NOTED ON OXYGEN @5LPM VIA NC. PT NOTED ON EXTERNAL TELE SPECIAL SERVICES SUPERVISOR READING SR IN THE 70S. KIRSTIN MIDLINE IN PLACE, INTACT, PATENT AND FLUSHING WELL. SAFETY PRECAUTION IN PLACE AND MAINTAINED AT ALL TIMES. BED IN LOWEST LOCKED POSITION, HOB ELEVATED, SIDE RAILS UP X 2, CALL LIGHT AND TABLE WITHIN REACH. WILL CONTINUE TO MONITOR
[2020-09-07 07:23] LABS: BASOPHILS % (AUTO) 0.2 % (0.0-2.0); EOSINOPHILS % (AUTO) 0.3 % (0.0-6.0); HEMATOCRIT 35 % (33-45); HEMOGLOBIN 11.4 g/dL (11.5-14.8); LYMPHOCYTES # (AUTO) 2.4 /CMM (0.8-4.8); LYMPHOCYTES % (AUTO) 30.1 % (20.0-44.0); MEAN CORPUSCULAR HGB CONC 33 g/dl (31.0-36.0); MEAN CORPUSCULAR VOLUME 94 fL (82-100); MONOCYTES # (AUTO) 0.5 /CMM (0.1-1.30); MONOCYTES % (AUTO) 6.5 % (2.0-12.0); NEUTROPHILS # (AUTO) 5.1 /CMM (1.8-8.9); NEUTROPHILS % (AUTO) 62.9 % (43.0-81.0); PLATELET COUNT (AUTO) 350 /CMM (150-450); RED BLOOD CELL COUNT(AUTO) 3.69 MIL/uL (4.0-5.2); WHITE BLOOD COUNT (AUTO) 8.1 K/uL (4.3-11.0)
[2020-09-07 07:56] LABS: CALCIUM, SERUM 8.3 mg/dL (8.5-10.1); CREATININE 0.6 mg/dL (0.6-1.3); MAGNESIUM 2.3 mg/dL (1.8-2.4); PHOSPHORUS 3.5 mg/dL (2.5-4.9); POTASSIUM 4.4 mmol/L (3.5-5.1)
[2020-09-07 08:00] VITALS: BP 105/52
[2020-09-07] MEDS: APIXABAN 5 MG TABLET PO SCH ×2 (08:32→16:24)
[2020-09-07 12:00] VITALS: BP 107/68
--- NOTE | 2020-09-07 15:23 | NUR ---
FOLLOW UP WITH LEAH ISSA FOR PT'S COVID CONVALESCENT PLASMA. PER LEAH ISSA SHE WILL KEEP NURSE UPDATED ONCE COVID CONVALESCENT PLASMA BECOMES AVAILABLE
[2020-09-07 16:00] VITALS: BP 101/57
--- NOTE | 2020-09-07 18:58 | NUR ---
PHYSICIST ACOUSTICS CLOSING NOTES PT AWAKE IN BED AT THIS TIME. PT REMAINED STABLE THROUGHOUT SHIFT. ALL CARE, NEED, MEDICATIONS AND TREATMENT ADMINISTERED ANTICIPATED PER ORDER. PT KEPT CLEAN AND DRY. ASPIRATION AND SAFETY PRECAUTION IN PLACE AND MAINTAINED AT ALL TIMES. BED IN LOWEST LOCKED POSITION, HOB ELEVATED, SIDE RAILS UP X 2, CALL LIGHT AND TABLE WITHIN REACH. WILL ENDORSE TO SALES AGENT INSURANCE NURSE FOR ALVINO
--- NOTE | 2020-09-07 19:30 | NUR ---
MS/RN OPENING NOTES RECEIVED PATIENT IN BED RESTING. PATIENT IS ALERT AND ORIENTED X 4. PATIENT BREATHING IS EVEN AND UNLABORED. NO SIGNS OF SOB OR RESPIRATORY DISTRESS NOTED. PATIENT IN NO SIGNS OF DISTRESS. IV ACCESS ON KIRSTIN MIDLINE. SAFETY MEASURES ARE IN PLACE, BED IS LOCKED AND PLACED IN THE LOW POSITION, SIDE RAILS UP X 2, CALL LIGHT WITH IN REACH. WILL CONTINUE TO MONITOR THROUGH OUT SHIFT.
[2020-09-07 20:00] VITALS: BP 93/52
[2020-09-08] VITALS (7 sets, daily range): BP systolic 89–124; BP diastolic 58–71
--- NOTE | 2020-09-08 06:40 | NUR ---
TELE/RN CLOSING NOTES PATIENT IN BED SLEEPING EASY TO AROUSE. PATIENT IS ALERT AND ORIENTED X 4. PATIENT BREATHING IS EVEN AND UNLABORED. NO SIGNS OF SOB OR RESPIRATORY DISTRESS NOTED. PATIENT IN NO SIGNS OF DISTRESS. IV ACCESS ON KIRSTIN MIDLINE. TELE READING SR 66. ALL PATIENT NEEDS HAVE BEEN MET DURING SHIFT. SAFETY MEASURES ARE IN PLACE, BED IS LOCKED AND PLACED IN THE LOW POSITION, SIDE RAILS UP X 2, CALL LIGHT WITH IN REACH. WILL ENDORSE CARE TO DAY SHIFT NURSE.
--- NOTE | 2020-09-08 07:30 | NUR ---
TELE/RN OPENING NOTE Received patient resting in bed, A&O x 4, Vincentian speaking. Denies any pain/discomfort at this time. Breathing even and non-labored on 5L oxygen via NC. No respiratory or cardiac distress noted. On tele monitor, reading SR 74. KIRSTIN midline access noted, patent and intact, and flushing well. Bed locked to its lowest position, side rails x 2 up, call light in hand. Will continue with current medical management.
[2020-09-08] MEDS: APIXABAN 5 MG TABLET PO SCH ×2 (08:19→16:10)
--- NOTE | 2020-09-08 12:30 | NUR ---
patient saturation at rest room air 89%,cm and md made aware.
--- NOTE | 2020-09-08 12:31 | NUR ---
recheck again room air sat at rest and saturates 88%,cm and md made aware.
--- NOTE | 2020-09-08 13:00 | NUR ---
TELE/RN NOTE Patient desaturates to 84% upon sleeping on RA. Placed 2L oxygen via NC, patient appears comfortable and saturating at 97-99%.
--- NOTE | 2020-09-08 18:58 | NUR ---
TELE/RN CLOSING NOTE Patient resting in bed, A&O x 4, Lebanese speaking. All needs met and attended to. Denies any pain/discomfort throughout shift. Breathing even and non-labored on 2L oxygen via NC, saturating at 99%. No respiratory or cardiac distress noted. On tele monitor, reading SR 85. KIRSTIN midline access noted, patent and intact, and flushing well. Fall precautions maintained. Will endorse to net developer programmer nurse.
--- NOTE | 2020-09-08 20:06 | NUR ---
ENTERPRISE ARCHITECT MANAGER OPENING NOTE Patient awake in bed, A/O x4, georgian speaking only. Tele monitor reading sinus rhythm in the 80s. Breathing even, unlabored on NC 2LPM, tolerating well. No acute distress or SOB noted. Skin warm, pink, dry, intact. Patient is ambulatory. IV site KIRSTIN midline, patent and intact, no signs of redness or infiltration. Abdomen round, soft, non-tender. Patient is continent. Bed in low position, wheels locked, side rails up x2, call light within reach.
[2020-09-09] VITALS (13 sets, daily range): BP systolic 94–115; BP diastolic 58–68
--- NOTE | 2020-09-09 06:05 | NUR ---
FABRIC AWNING REPAIRER CLOSING NOTE Patient awake in bed, A/O x4, danish speaking only. Tele monitor reading sinus rhythm in the 80s. Breathing even, unlabored on NC 1LPM, tolerating well. O2sat 94%. No acute distress or SOB noted. Skin warm, pink, dry, intact. Patient is ambulatory. IV site KIRSTIN midline, patent and intact, no signs of redness or infiltration. All needs met. Bed in low position, wheels locked, side rails up x2, call light within reach.
--- NOTE | 2020-09-09 08:00 | NUR ---
RN OPENING NOTE Patient is resting in bed, A/O x3, showing no signs of acute distress or sob, saturating 86% on RA, 92-93% on 3L NC. Patient denies any pain or discomfort at this time. Bed is in lowest position, side rails x2 in upright position, call light is within reach, fall safety and aspiration precautions enforced. Will continue with plan of care.
[2020-09-09] MEDS: APIXABAN 5 MG TABLET PO SCH ×2 (09:43→16:59)
--- NOTE | 2020-09-09 18:55 | NUR ---
RN CLOSING NOTE Patient is resting in bed, A/O x3, showing no signs of acute distress or sob, 92-93% on 3L NC. Patient denies any pain or discomfort during shift. Patient is ambulatory to bathroom independent with self care. All patient needs met, all due medications given, patient kept clean and dry. Bed is in lowest position, side rails x2 in upright position, call light is within reach, fall safety and aspiration precautions enforced. Will endorse to insurance customer service specialist for ALVINO.
--- NOTE | 2020-09-09 18:56 | NUR ---
RN NOTE Received call from lab that convalescent plasma is ready. Will endorse to service manager to administer.
--- NOTE | 2020-09-09 21:34 | NUR ---
RN NOTE Convalescent plasma started at 2040, patient remains a/ox4, in no acute distress, VS stable, no s/sx of transfusion reaction. Endorsed to Kelly BARTON for ALVINO.
--- NOTE | 2020-09-09 23:20 | NUR ---
RN NOTE CONVALESCENT PLASMA TRANSFUSION DONE AT 2320. NO REACTIONS NOTED. PT ALERT AND VERBALLY RESPONSIVE. NO DISTRESS NOTED. PT DENIES ANY PAIN. BP 98/66 R 18 HR 76 T 97.8
[2020-09-10] VITALS: BP 96/51
[2020-09-10 04:00] VITALS: BP 120/71
--- NOTE | 2020-09-10 07:30 | NUR ---
RN OPENING NOTE PATIENT IS CURRENTLY IN BED, RESTING. A/O X3, S[place]OREAN SPEAKING. NO S/S OF DISTRESS AT THIS TIME. CURRENTLY SATURATING 96% WITH O2 THERAPY. NSR SHOWING ON TELE MONITOR. PATIENT DENIES ANY PAIN OR DISCOMFORT AT THIS TIME. ALL SAFETY MEASURES IN PLACE PER HOSPITAL POLICY. BED LOCKED IN LOWEST POSITION, SIDE RAILS UP X2, CALL LIGHT WITHIN REACH. WILL CONTINUE TO MONITOR AND PROVIDE CARE.
--- NOTE | 2020-09-10 07:35 | NUR ---
RN NOTES PATIENT IN BED, VERBALLY RESPONSIVE. NO CHANGES IN LOC NOTED. O2 AT 3L TOLERATING, SATING AT 98 % DENIES ANY SOB. TELE MONITOR SHOWS SR HR 82. ASSISTED PT TO RESTROOM, NO FALL NOTED. MIDLINE ON KIRSTIN INTACT AND PATENT. NO SIGNS OF INFECTION. ATTENDED TO NEEDS. ALL SAFETY MEASURES IMPLEMENTED PER PROTOCOL. SIDE RAILS UP X 2. CALL LIGHT WITHIN REACH. BED LOCKED IN LOWEST POSITION. WILL ENDORSE TO NEXT SHIFT NURSE FOR ALVINO.
[2020-09-10 08:00] VITALS: BP 111/64
[2020-09-10] MEDS: APIXABAN 5 MG TABLET PO SCH ×2 (08:53→17:15)
[2020-09-10 12:00] VITALS: BP 111/68
[2020-09-10 16:00] VITALS: BP 108/66
--- NOTE | 2020-09-10 19:17 | NUR ---
RN CLOSING NOTE PATIENT IS CURRENTLY IN BED, RESTING. A/O X3, GREEK SPEAKING. NO S/S OF DISTRESS AT THIS TIME. CURRENTLY SATURATING 96% WITH O2 THERAPY, TITRATED DOWN TO 1L/MIN. NSR SHOWING ON TELE MONITOR. PATIENT DENIES ANY PAIN OR DISCOMFORT AT THIS TIME. ALL SAFETY MEASURES IN PLACE PER HOSPITAL POLICY. BED LOCKED IN LOWEST POSITION, SIDE RAILS UP X2, CALL LIGHT WITHIN REACH. WILL ENDORSE TO RN MANAGED CARE NURSE FOR ALVINO.
--- NOTE | 2020-09-10 19:33 | NUR ---
[employer] SALES NOTES PATIENT IN BED, AWAKE, ALERT AND ORIENTED X 3. POLISH SPEAKING ONLY. BREATHING EVEN AND UNLABORED ON NC 1L. SHOWS NO SIGNS OF ACUTE RESPIRATORY DISTRESS. NO ACUTE PAIN. IV ON KIRSTIN MIDLINE CLEAN DRY AND INTACT. FLUSHING WELL. SHOWS NO SIGNS OF INFILTRATION, NO REDNESS. SAFETY PRECAUTIONS IN PLACE. BED IN LOWEST POSITION, LOCKED, AND CALL LIGHT KEPT WITHIN REACH. WILL CONTINUE TO MONITOR.
[2020-09-10 20:00] VITALS: BP 101/52
[2020-09-11 00:45] VITALS: BP 107/71
[2020-09-11 04:00] VITALS: BP 118/73
--- NOTE | 2020-09-11 06:56 | NUR ---
WEB OPERATIONS MANAGER NOTES PATIENT IN BED, ASLEEP, ALERT AND ORIENTED X 3. BELGIAN SPEAKING ONLY. BREATHING EVEN AND UNLABORED ON NC 1L. SHOWS NO SIGNS OF ACUTE RESPIRATORY DISTRESS. NO ACUTE PAIN. IV ON KIRSTIN MIDLINE CLEAN DRY AND INTACT. FLUSHING WELL. SHOWS NO SIGNS OF INFILTRATION, NO REDNESS. ALL DUE MEDICATIONS GIVEN. ALL NEEDS ATTENDED TO. SAFETY PRECAUTIONS IN PLACE. BED IN LOWEST POSITION, LOCKED, AND CALL LIGHT KEPT WITHIN REACH. WILL ENDORSE TO ONCOMING NURSE.
--- NOTE | 2020-09-11 07:10 | NUR ---
RN OPENING NOTE RECEIVED PT IN BED, RESTING. A/O X3, COLOMBIAN SPEAKING. NO SOB OR ANY S/S OF DISTRESS AT THIS TIME. SATURATING 98% ON 1L O2 VIA NC. ON TELE MONITOR SHOWING SR. PT DENIES ANY PAIN OR DISCOMFORT AT THIS TIME. ALL SAFETY MEASURES IN PLACE. CALL LIGHT WITHIN REACH. BED LOCKED IN LOWEST POSITION WITH SIDE RAILS UP X2. WILL CONTINUE TO MONITOR.
[2020-09-11 08:00] VITALS: BP 109/65
[2020-09-11] MEDS: APIXABAN 5 MG TABLET PO SCH ×2 (08:36→16:34)
[2020-09-11 12:00] VITALS: BP 110/59
[2020-09-11] MEDS ORDERED: ACET325T53 PO (14:17)
[2020-09-11] MEDS ORDERED: ALBU18HF2 IH (14:17)
--- NOTE | 2020-09-11 15:00 | NUR ---
RN NOTES REMOVED NASAL CANNULA. ON ROOM AIR SATURATING @95%. NOT IN RESPIRATORY DISTRESS. NO SOB.
[2020-09-11 16:59] VITALS: BP 109/49
--- NOTE | 2020-09-11 19:24 | NUR ---
RN CLOSING NOTES DISCHARGED TO HOME. ACCOMPANIED BY SON VIA PRIVATE CAR. IN STABLE CONDITION. VS WNL. NO PAIN REPORTED. SKIN IS INTACT. FLU VACCINE REFUSED DESPITE EDUCATION X3. MEGAN MUHAMMAD HELPED IN TRANSLATION.
== END 2020-09-11 19:00 | disposition home or self-care (01) | DRG 177 ==
LOC: ER 22:33 → TRANSITION 08-28 02:12 → TELE1 08-28 18:24 → TELE-TD 08-28 21:59 → TELE1 08-29 08:24
PROVIDERS: ADMIT Nurse Practitioner Acute Care
PROC: XW033E5 Introduction of Remdesivir Anti-infective into Peripheral Vein, Percutaneous Approach, New Technology Group 5 (ICD-10-PCS; principal; 2020-08-29)
PROC: XW13325 Transfusion of Convalescent Plasma (Nonautologous) into Peripheral Vein, Percutaneous Approach, New Technology Group 5 (ICD-10-PCS; 2020-08-29)
PROC: 05HY33Z Insertion of Infusion Device into Upper Vein, Percutaneous Approach (ICD-10-PCS; 2020-09-01)
DX: U07.1 COVID-19 (principal); J12.89 Other viral pneumonia; J96.01 Acute respiratory failure with hypoxia; J18.9 Pneumonia, unspecified organism; E44.1 Mild protein-calorie malnutrition; E66.01 Morbid (severe) obesity due to excess calories; Z68.38 Body mass index [BMI] 38.0-38.9, adult; R73.9 Hyperglycemia, unspecified; I70.0 Atherosclerosis of aorta
CPT/HCPCS: 36415; 71045-TC; 80048-TC; 80053-TC; 80061-TC; 80076-TC; 82728-TC; 83605-TC; 83615-TC; 83735-TC; 83880; 84100-TC; 84443-TC; 84484-TC; 85025-TC; 85378-TC; 85610-TC; 85730-TC; 86140-TC; 86480; 86803; 86850-TC; 87040-TC; 87081-TC; 87899; 97112-TC; 97116-TC; 97530-TC; A4216; G0378; J0456; J0696; J1100; J1650; J2543; J3370; J7030; J7042; J7050; J7060; P9017-BL; U0003